=== PATIENT | female | born 1955 | race Caucasian/White ===

== ENCOUNTER → 2019-11-03 | Outpatient (CLI) | payer MEDICARE, BC ==
[~2019-11-03] MED LIST: AMOX1TAB64 PO; CALC-570 PO; LEVO750T26 PO; MOME110A2 IH; MOME17SP IH; MULT-252 PO
== END | disposition home or self-care (01) ==
LOC: CFH 12:27
PROVIDERS: ATTEND Family Medicine
DX: M81.0 Age-related osteoporosis without current pathological fracture (principal); N95.9 Unspecified menopausal and perimenopausal disorder
CPT/HCPCS: 77080